=== PATIENT | male | born 1995 | race Caucasian/White ===

== ENCOUNTER 2016-10-06 23:47 | Inpatient (IN) | payer OTHER ==
[~2016-10-06] VITALS: Ht 175.3 cm; Wt 55.7 kg
[~2016-10-06 23:47] MED LIST: ARIP1TAB12 PO; PALI156P IM
[2016-10-07 02:07] VITALS: BP 133/68; PULSE 58; RESP 20; TEMP 97.5
[2016-10-07 05:15] VITALS: BP 132/66; PULSE 66; RESP 18; TEMP 97.9; O2SAT 96
[2016-10-07 05:22] VITALS: BP 119/62; PULSE 65; RESP 18; TEMP 97.8
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
[2016-10-07] MEDS ORDERED: LORazepam 2 MG/ML VIAL IM PRN (14:30)
[2016-10-07] MEDS ORDERED: MAGNESIUM HYDROXIDE SUSP 30 ML CUP PO PRN (14:30)
[2016-10-07] MEDS ORDERED: BENZTROPINE MESYLATE 2 MG/2 ML VIAL IM PRN (14:30)
[2016-10-07] MEDS ORDERED: ACETAMINOPHEN 325 MG TAB PO PRN (14:30)
[2016-10-07] MEDS ORDERED: BENZTROPINE MESYLATE 1 MG TAB PO PRN (14:30)
[2016-10-07] MEDS ORDERED: diphenhydrAMINE HCL 50 MG CAP PO PRN (14:30)
[2016-10-07] MEDS ORDERED: LORazepam 1 MG TAB PO PRN (14:30)
[2016-10-07] MEDS ORDERED: ALUMINUM/MAGNESIUM/SIMETH 30 ML CUP PO PRN (14:30)
[2016-10-07 16:00] VITALS: BP 106/64; PULSE 63; RESP 18; TEMP 98.1; O2SAT 96
--- NOTE | 2016-10-08 07:42 | HHI.DS ---
Psychiatry Discharge Summary Inpatient Psychiatric care?: Yes Advance Directive: No Reason Not Provided: Due to Patient Condition Mental Health AdvanceDirective: No Health Care Proxy: No Admission Admission Date October 07, 2016 at 01:53 Admission Diagnosis: (1) Paranoid schizophrenia ICD Code: F20.0 (2) Cannabis abuse ICD Code: F12.10 Brief History Mr. Massey is a 20-year-old male with a history of schizophrenia who presents under an ex parte order initiated by his mother, Niki Cole, in transfer from [facility]. I have reviewed the affidavit from the patient's mother appended to the ex parte order in great detail. It alleges that the patient has a history of mental illness into which he has poor insight. It alleges that he is refusing treatment for his mental illness. Reviewing our own electronic medical record, I see that the patient was admitted once before here under Dr. Castillo in August 2015. Patient seen and examined with counselor and nurse. Chart reviewed. Case discussed with nursing staff reports patient was no behavioral problem overnight. On my examination today, the patient exhibits poor eye contact. His grooming and hygiene seem fair. He appears to be attending to his basic needs. He initially is volitionally mute but does eventually participate in interview. He denies any issues with low mood or elevated mood, nor can I elicit any depressive or hypomanic/manic symptoms. He denies any suicidal or homicidal ideation, intent or plan. He denies any audiovisual hallucinations and in particular denies any command auditory hallucinations to hurt himself or others. He does admit "I have visions. Words change on posters." He says that these words share messages with him that he won't discuss it any detail but he will say that they are noncommand in nature and certainly do not instruct him to hurt himself or others. He denies significant anxiety. I can elicit no other delusional beliefs. The remainder of the psychiatric ROS is negative. The patient is requesting discharge from the inpatient psychiatric unit today. Past psychiatric history: Patient has a history of schizophrenia, which he says was diagnosed 2 years ago. He does not agree with this diagnosis and does not believe that he is mentally ill. He does not believe that he is in need of psychotropic medications. He is not currently under the care of an outpatient psychiatrist. He has been nonadherent with medications for at least the last few months. He reports that he was admitted most recently at [facility] about 2 months ago and was started on long-acting injectable Abilify. He denies any history of suicide attempts. I have obtained collateral from patient's mother, Ms. Cole over the phone. She notes that the patient has been placed under ex parte order numerous times because of nonadherence with his psychotropic medications and for psychotic decompensations. She notes that he has been hospitalized about 5 times within the last few years. She notes that he refuses medications, refuses initiation of disability and refuses to accept his illness. She does say that the family will accept him in but only if he is accepting of medications, which he is not. Consequently, he is presently homeless. She does not know any history of physical aggression and the patient, nor does she have any concerns that he would be physically aggressive. She notes that he has no history of suicide attempts in the past, although he did ask to go to the hospital one year ago for suicidal ideation. She is working on obtaining guardianship of the patient. I have explained that the patient does not presently meet Weeks act criteria. I have recommended that she continue to pursue guardianship and have a low threshold to have the patient Weeks acted or once again ex parte'd if his condition should worsen. Tobacco Use In Past 30 Days: Cigarettes But Not Daily Alcohol Use: Monthly or Less Hospital Course Patient was admitted to a locked, inpatient psychiatric unit. Appropriate precautions were in place throughout patient's hospital stay. Patient was seen and examined daily on the unit by psychiatry and also visited by counselor. Patient declined any treatment for his schizophrenia, and his insight into his illness is poor. I evaluated the patient yesterday and determined that he did not meet criteria for involuntary psychiatric hospitalization. I did initiate a petition for involuntary outpatient commitment, but I am told by the legal analyst that the freight representative from [facility] came to evaluate the patient and determined that he was a poor candidate and so declined to do the needed treatment plan. In any event, the patient is now planning to leave the county to stay with a friend and so the outpatient commitment would be of little benefit. There was no evidence of any suicidality or homicidality on the inpatient unit. On the day of discharge: Patient seen and examined. Chart reviewed. Case discussed with nursing staff who reports that the patient has been no behavioral problem. On my examination today, the patient continues to insist on discharge from the inpatient psychiatric unit. He denies any suicidal or homicidal ideation, intent or plan. Mood remains stable and there are no depressive or hypomanic/manic symptoms. No talat delusional material. I have once again recommended that the patient remain voluntarily and pursue a course of treatment for his psychiatric illness, but the patient continues to insist on leaving the inpatient psychiatric unit today. Patient's suicide and violence risk assessment remain unchanged today; he is at low imminent risk of harm to self or others after weighing the acute, chronic, and protective factors at this time. I have no basis to retain this patient involuntarily at this time. I must arrange for his discharge today therefore and will do so AGAINST MEDICAL ADVICE. Patient should follow-up psychiatrically on an outpatient basis. Patient is to follow-up with primary care. I have counseled the patient regarding warning signs for need to return to the psychiatric emergency room as part of a general safety plan. Results Blood Pressure 106 / 64 Vital Signs Date Time Temp Pulse Resp B/P Pulse Ox O2 Delivery O2 Flow Rate FiO2 10/07/16 16:00 98.1 63 18 106/64 96 None done; labs performed prior to transfer. Summary of Procedures None done Imaging None done Pending results at discharge: No Medications # of Antipsychotic meds at D/C: 0 Approp Antipsych med options 1 - Minimum of three failed multiple trials of monotherapy. 2 - Documented plan to taper to monotherapy due to previous use of multiple meds OR cross-taper in progress at D/C. 3 - Documentation of augmentation of Clozapine. 4 - Justification other than those listed in allowable values 1-3, document here : Discharge Discharge Date: October 08, 2016 Discharge Diagnosis: (1) Paranoid schizophrenia Diagnosis: Principal ICD Code: F20.0 (2) Cannabis abuse Diagnosis: Secondary ICD Code: F12.10 GAF is 50 presently. Mental Status Exam at Disch Patient is casually dressed. He is fairly well groomed and maintaining basic hygiene. He is awake and alert and oriented 3. No evidence of delirium. No motor abnormalities noted. Speech is within normal limits for rate, tone and volume. Limited fund of knowledge seem average. Mood is fair and affect is blunted. Thought process linear. No loosening of associations. No talat delusions. Denies audiovisual hallucinations. Denies suicidal or homicidal ideation, intent or plan. Insight and judgment are poor. Pt Condition on Discharge: Guarded (AGAINST MEDICAL ADVICE discharge) Discharge Disposition: Discharge Home Discharge Instructions Diet Instructions: As Tolerated, No Restrictions Activities you can perform: Weight Bearing as Rogelio Scheduled Appointment: Jaylen Rogers Appointment Date: October 13, 2016 Appointment Time: 10:45am Continued Medications: Paliperidone Palmitate (Invega Sustenna) 156 Mg/Ml Inj 156 MG IM Q28D schizophrenia Days 28 INJECTION Discontinued Medications: Aripiprazole (Aripiprazole) 10 Mg Tab 10 MG PO DAILY psychosis Days 30 TAB Discharge Time <= 30 minutes Discharge/Advance Care Plan Health Problems: (1) Paranoid schizophrenia (2) Cannabis abuse Goals to promote your health * To prevent worsening of your condition and complications * To maintain your health at the optimal level Directions to meet your goals Take your medications as prescribed Follow your dietary instruction Follow activity as directed Keep your appointments as scheduled Take your immunizations and boosters as scheduled If your symptoms worsen call your PCP, if no PCP go to Urgent Care Center or Emergency Room For 24/ questions related to your inpatient stay or results of tests pending at discharge, please contact Dr. Martir Childers at Smoking is Dangerous to Your Health. Avoid second hand smoking Martir Childers MD October 08, 2016 07:42
== END 2016-10-08 08:10 | disposition left against medical advice (07) | DRG 885 ==
LOC: H270 10-07 01:53
PROVIDERS: ADMIT Psychiatry & Neurology Psychiatry; ATTEND Psychiatry & Neurology Psychiatry
DX: F20.0 Paranoid schizophrenia (principal); F12.10 Cannabis abuse, uncomplicated; R73.9 Hyperglycemia, unspecified; J45.909 Unspecified asthma, uncomplicated; Z59.0 Homelessness